=== PATIENT | female | born 1985 | race African-American/Black ===

== ENCOUNTER 2019-04-03 09:15 | Emergency (ER) | payer BC ==
[~2019-04-03] VITALS: Ht 165.1 cm; Wt 68.0 kg
--- NOTE | 2019-04-03 09:20 | NUR ---
CAME IN FOR FACIAL PAIN, L WRIST AND L KNEE PAIN S/P TRIP AND FELL WHILE JOGGING. UPDATED TETANUS SHOT. STATES 22 WEEKS . A0. TO ER BED 10, HOOKED TO MONITOR, CHANGED TO HOSP GOWN, PROVIDED W WARM BLANKET. DR FLORES AT BEDSIDE.
--- NOTE | 2019-04-03 09:37 | NUR ---
US TECH AT BEDSIDE
--- NOTE | 2019-04-03 10:30 | NUR ---
WOUND CLEANED AND COVERED W DRESSING.
--- NOTE | 2019-04-03 10:39 | NUR ---
Patient discharged to home in stable condition. Written and verbal after care instructions given. Patient verbalizes understanding of instruction.
[2019-04-03 10:43] VITALS: BP 125/93
== END 2019-04-03 10:43 | disposition home or self-care (01) ==
LOC: ER 09:18
DX: O9A.212 Injury, poisoning and certain other consequences of external causes complicating pregnancy, second trimester (principal); S00.33XA Contusion of nose, initial encounter; S80.01XA Contusion of right knee, initial encounter; S39.81XA Other specified injuries of abdomen, initial encounter; Z60.2 Problems related to living alone; Z3A.21 21 weeks gestation of pregnancy; W01.0XXA Fall on same level from slipping, tripping and stumbling without subsequent striking against object, initial encounter; Y93.01 Activity, walking, marching and hiking; Y92.89 Other specified places as the place of occurrence of the external cause; Y99.8 Other external cause status
CPT/HCPCS: 76805-TC